=== PATIENT | female | born 1965 | race Caucasian/White ===

== ENCOUNTER → 2016-10-31 | Outpatient (CLI) | payer BC | END | disposition home or self-care (01) | LOC: RADECHMAIN 12:21 | PROVIDERS: ATTEND Family Medicine | DX: R00.2 Palpitations (principal) | CPT/HCPCS: 93225; 93226 ==

== ENCOUNTER → 2016-11-26 | Outpatient (CLI) | payer BC ==
--- NOTE | 2016-11-26 11:10 | FL ---
EXAMINATION TYPE: FL barium swallow DATE OF EXAM: 11/26/2016 COMPARISON: NONE HISTORY: Dysphasia and heartburn TECHNIQUE: Double contrast esophagram FINDINGS: Barium and air was swallowed without difficulty and passed and the esophagus without delay. There are tertiary contractions of the esophagus and a small sliding hiatal hernia with mild gastroe sophageal reflux. No obstructing lesion was seen. IMPRESSION: 1. Small sliding hiatal hernia with tertiary contractions of esophagus and mild gastroesophageal refl ux. Cannot exclude a mild esophagitis correlate with direct visualization as clinically warranted.
== END ==
LOC: RADFLWHC 10:09
PROVIDERS: ATTEND Family Medicine
DX: K21.9 Gastro-esophageal reflux disease without esophagitis (principal); K44.9 Diaphragmatic hernia without obstruction or gangrene; R12 Heartburn; R07.89 Other chest pain
CPT/HCPCS: 74220

== ENCOUNTER 2016-12-31 17:29 | Emergency (ER) | payer BC ==
[2016-12-31 18:37] LABS: Basophils # (A) 0.1 k/uL (0-0.2); Basophils % (A) 1 %; CH 31.5; CHCM 34.7; Eosinophils # (A) 0.4 k/uL (0-0.7); Eosinophils % (A) 5 %; HCT 45.8 % (34.0-46.0); HDW 2.32; HGB 15.6 gm/dL (11.4-16.0); Luc # (Auto) 0.19; Luc % (Auto) 3; Lymphocytes # (A) 1.9 k/uL (1.0-4.8); Lymphocytes % (A) 27 %; MCH 31.1 pg (25.0-35.0); MCHC 34.1 g/dL (31.0-37.0); MCV 91.2 fL (80.0-100.0); Mean Platelet Volume 6.9; Monocytes # (A) 0.5 k/uL (0-1.0); Monocytes % (A) 7 %; Neutrophils # (A) 4.2 k/uL (1.3-7.7); Neutrophils % (A) 58 %; RBC 5.02 m/uL (3.80-5.40); RDW 12.6 % (11.5-15.5); WBC 7.2 k/uL (3.8-10.6); WBC (Perox) 7.01
--- NOTE | 2016-12-31 18:41 | XR ---
EXAMINATION TYPE: XR chest 2V DATE OF EXAM: 12/31/2016 COMPARISON: 12/23/2016 HISTORY: Chest pain TECHNIQUE: Frontal and lateral views of the chest are obtained. FINDINGS: Heart and mediastinum are normal. Lungs are clear. Diaphragm is normal. There are chest le ads. There is mild thoracic dextroscoliosis. IMPRESSION: No active cardiopulmonary disease. No change.
[2016-12-31 18:47] LABS: ALT 37 U/L (9-52); AST 25 U/L (14-36); Alkaline Phosphatase 47 U/L (38-126); Anion Gap 8 mmol/L; Blood Urea Nitrogen 17 mg/dL (7-17); Calcium 10.6 mg/dL (8.4-10.2); Carbon Dioxide 26 mmol/L (22-30); Chloride 106 mmol/L (98-107); Glucose 93 mg/dL (74-99); Magnesium 1.8 mg/dL (1.6-2.3); Non-African American GFR(MDRD) >60 (>60 ml/min/1.73 sqM); Sodium 140 mmol/L (137-145); Total Bilirubin 0.4 mg/dL (0.2-1.3); Total Protein 7.3 g/dL (6.3-8.2)
[2016-12-31 18:56] LABS: Creatine Kinase 34 U/L (30-135)
[2016-12-31 18:58] LABS: Prothrombin Time 10.2 sec (9.0-12.0)
[2016-12-31 19:07] LABS: Partial Thromboplastin Time 20.8 sec (22.0-30.0)
[2016-12-31 19:09] LABS: Creatine Kinase MB 0.3 ng/mL (0.0-2.4); Troponin I <0.012 ng/mL (0.000-0.034)
[2016-12-31] MEDS ORDERED: RX INFO: IV CONTRAST WAS GIVEN 1 EACH MISC MISCELLANE PRN (19:45)
--- NOTE | 2016-12-31 20:36 | CT ---
EXAMINATION TYPE: CT angio chest DATE OF EXAM: 12/31/2016 8:16 PM COMPARISON: NONE HISTORY: CHEST PAINS AND SOB X1 WEEK CT DLP: 257.8 mGycm Automated exposure control for dose reduction was used. CONTRAST: CTA scan of the thorax is performed with IV Contrast, patient injected with 60 mL of Omnipaque 350, p ulmonary embolism protocol. There are 3-D post processed images.. FINDINGS: The lungs are clear of infiltrate. There is no pleural effusion. There is mild linear density at the left posterior lung base consistent with scarring or atelectasis. There is no sign of a pulmonary mas s. There is no pericardial effusion. There is no pleural effusion. I see no filling defects in the pulmonary arteries. There is no evidence of aortic aneurysm or dissec tion. There is spurring in the thoracic spine. IMPRESSION: NO EVIDENCE OF DOMINANT EMBOLISM. MINIMAL SCARRING OR ATELECTASIS IN THE LEFT LOWER LOBE.
--- NOTE | 2016-12-31 21:38 | ED ---
General Adult HPI - General Chief complaint: Chest Pain Stated complaint: chest pain, anxiety Time Seen by Provider: 12/31/16 17:38 Source: patient, RN notes reviewed, old records reviewed Mode of arrival: wheelchair Limitations: no limitations - History of Present Illness Initial comments: 51-year-old female presenting with heavy chest pain and jaw pain. Patient states the pain was with exertion and she did have some shortness of breath. She was recently evaluated for chest pain approximately one week ago which included a stress test and stress echo. Patient was started on atenolol on Saturday as well as medication for gastric reflux. She was also given anxiety medication isn't was some concern that this may have been related to anxiety. She has a past medical history of hypothyroidism. Patient states the pain was somewhat different today. Denies any nausea vomiting or diarrhea. Denies any diaphoresis. She does have a strong family history of coronary artery disease with a father who at age 40. - Related Data Home Medications Medication Instructions Recorded Confirmed Thyroid,Pork [[place] Thyroid] 60 mg PO SUMOWETHFR 12/23/16 12/31/16 Atenolol [Tenormin] 25 mg PO DAILY 12/31/16 12/31/16 Thyroid,Pork [[place] Thyroid] 120 mg PO TUSA 12/31/16 12/31/16 Previous Rx's Medication Instructions Recorded Atorvastatin [Lipitor] 20 mg PO DAILY tab 12/24/16 LORazepam [Ativan] 0.5 mg PO TID PRN #20 tab 12/24/16 Pantoprazole Sodium [Protonix] 40 mg PO DAILY #30 tablet. 12/24/16 Allergies Allergy/AdvReac Type Severity Reaction Status Date / Time No Known Allergies Allergy Verified 12/31/16 19:16 Review of Systems ROS Statement: Those systems with pertinent positive or pertinent negative responses have been documented in the HPI. ROS Other: All systems not noted in ROS Statement are negative. Respiratory: Denies: cough Cardiovascular: Reports: chest pain, palpitations Gastrointestinal: Denies: abdominal pain, nausea, vomiting Past Medical History Past Medical History: No Reported History Additional Past Medical History / Comment(s): Hiatal Hernia History of Any Multi-Drug Resistant Organisms: None Reported Past Surgical History: No Surgical Hx Reported Past Anesthesia/Blood Transfusion Reactions: No Reported Reaction Past Psychological History: Anxiety, Depression Smoking Status: Former smoker Past Alcohol Use History: None Reported Past Drug Use History: None Reported - Past Family History Father Family Medical History: Myocardial Infarction ([place]) General Exam Limitations: no limitations General appearance: alert, in no apparent distress Head exam: Present: atraumatic, normocephalic Eye exam: Present: normal appearance, PERRL, EOMI ENT exam: Present: normal exam, mucous membranes moist Neck exam: Present: normal inspection. Absent: meningismus Respiratory exam: Present: normal lung sounds bilaterally, respiratory distress Cardiovascular Exam: Present: regular rate, normal rhythm GI/Abdominal exam: Present: soft. Absent: distended Extremities exam: Present: normal inspection, normal capillary refill. Absent: pedal edema Back exam: Present: normal inspection Neurological exam: Present: alert, oriented X3 Psychiatric exam: Present: normal affect, normal mood Skin exam: Present: warm, dry. Absent: diaphoretic Course Vital Signs 12/31/16 12/31/16 12/31/16 17:36 19:40 20:40 Temperature 96.8 F L Pulse Rate 84 57 L 61 Respiratory 20 18 16 Rate Blood Pressure 151/105 109/69 117/70 O2 Sat by Pulse 94 L 95 98 Oximetry EKG Findings - EKG Comments: EKG Findings:: EKG shows sinus rhythm with a ventricular rate of 67, AL interval 1:30, castration 88, QTC is 456, there is no ST segment elevation or depression. Medical Decision Making - Medical Decision Making Laboratory workup including CBC, CMP and cardiac enzymes is unremarkable, exception of an elevated d-dimer. CT angiography was obtained to evaluate for pulmonary embolism. This is negative. Medical records are reviewed including stress echo and stress test obtained 7 days ago. These were normal. Discussion with the patient regarding the possibilities of her pain including CAD, esophageal spasm, and anxiety. Patient was offered admission for repeat cardiology evaluation. She declines. She is accompanied by her and they are both willing to go home and repeat present emergency department with change or worsening symptoms. 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 She is encouraged to continue these appointments. - Lab Data Result diagrams: 12/31/16 18:21 12/31/16 18:21 Lab Results 12/31/16 12/31/16 12/31/16 Range/Units 18:21 18:21 18:21 WBC 7.2 (3.8-10.6) k/uL RBC 5.02 (3.80-5.40) m/uL Hgb 15.6 (11.4-16.0) gm/dL Hct 45.8 (34.0-46.0) % MCV 91.2 (80.0-100.0) fL MCH 31.1 (25.0-35.0) pg MCHC 34.1 (31.0-37.0) g/dL RDW 12.6 (11.5-15.5) % Plt Count 321 (150-450) k/uL Neutrophils % 58 % Lymphocytes % 27 % Monocytes % 7 % Eosinophils % 5 % Basophils % 1 % Neutrophils # 4.2 (1.3-7.7) k/uL Lymphocytes # 1.9 (1.0-4.8) k/uL Monocytes # 0.5 (0-1.0) k/uL Eosinophils # 0.4 (0-0.7) k/uL Basophils # 0.1 (0-0.2) k/uL PT (9.0-12.0) sec INR (<1.2) APTT (22.0-30.0) sec D-Dimer (<0.60) mg/L FEU Sodium 140 (137-145) mmol/L Potassium 4.0 (3.5-5.1) mmol/L Chloride 106 (98-107) mmol/L Carbon Dioxide 26 (22-30) mmol/L Anion Gap 8 mmol/L BUN 17 (7-17) mg/dL Creatinine 0.77 (0.52-1.04) mg/dL Est GFR (MDRD) Af Amer >60 (>60 ml/min/1.73 sqM) Est GFR (MDRD) Non-Af >60 (>60 ml/min/1.73 sqM) Glucose 93 (74-99) mg/dL Calcium 10.6 H (8.4-10.2) mg/dL Magnesium 1.8 (1.6-2.3) mg/dL Total Bilirubin 0.4 (0.2-1.3) mg/dL AST 25 (14-36) U/L ALT 37 (9-52) U/L Alkaline Phosphatase 47 (38-126) U/L Total Creatine Kinase 34 (30-135) U/L CK-MB (CK-2) 0.3 (0.0-2.4) ng/mL CK-MB (CK-2) Rel Index 0.9 Troponin I <0.012 (0.000-0.034) ng/mL NT-Pro-B Natriuret Pep pg/mL Total Protein 7.3 (6.3-8.2) g/dL Albumin 4.5 (3.5-5.0) g/dL 12/31/16 12/31/16 Range/Units 18:21 18:21 WBC (3.8-10.6) k/uL RBC (3.80-5.40) m/uL Hgb (11.4-16.0) gm/dL Hct (34.0-46.0) % MCV (80.0-100.0) fL MCH (25.0-35.0) pg MCHC (31.0-37.0) g/dL RDW (11.5-15.5) % Plt Count (150-450) k/uL Neutrophils % % Lymphocytes % % Monocytes % % Eosinophils % % Basophils % % Neutrophils # (1.3-7.7) k/uL Lymphocytes # (1.0-4.8) k/uL Monocytes # (0-1.0) k/uL Eosinophils # (0-0.7) k/uL Basophils # (0-0.2) k/uL PT 10.2 (9.0-12.0) sec INR 1.0 (<1.2) APTT 20.8 L (22.0-30.0) sec D-Dimer 1.46 H (<0.60) mg/L FEU Sodium (137-145) mmol/L Potassium (3.5-5.1) mmol/L Chloride (98-107) mmol/L Carbon Dioxide (22-30) mmol/L Anion Gap mmol/L BUN (7-17) mg/dL Creatinine (0.52-1.04) mg/dL Est GFR (MDRD) Af Amer (>60 ml/min/1.73 sqM) Est GFR (MDRD) Non-Af (>60 ml/min/1.73 sqM) Glucose (74-99) mg/dL Calcium (8.4-10.2) mg/dL Magnesium (1.6-2.3) mg/dL Total Bilirubin (0.2-1.3) mg/dL AST (14-36) U/L ALT (9-52) U/L Alkaline Phosphatase (38-126) U/L Total Creatine Kinase (30-135) U/L CK-MB (CK-2) (0.0-2.4) ng/mL CK-MB (CK-2) Rel Index Troponin I (0.000-0.034) ng/mL NT-Pro-B Natriuret Pep 110 pg/mL Total Protein (6.3-8.2) g/dL Albumin (3.5-5.0) g/dL Disposition Clinical Impression: Chest pain Disposition: HOME SELF-CARE Condition: Good Instructions: Chest Pain (ED) Referrals: Zev Sanders III, MD [Primary Care Provider] - 1-2 days Time of Disposition: 21:37
[2016-12-31 21:55] VITALS: BP 94/55
[2016-12-31 22:16] VITALS: PULSE 56; RESP 16; TEMP 98.5
== END 2016-12-31 22:15 | disposition home or self-care (01) ==
LOC: EC 17:29
DX: R07.9 Chest pain, unspecified (principal); R06.00 Dyspnea, unspecified; R00.2 Palpitations; F41.9 Anxiety disorder, unspecified; E07.9 Disorder of thyroid, unspecified; Z82.49 Family history of ischemic heart disease and other diseases of the circulatory system; Z79.899 Other long term (current) drug therapy; Z87.891 Personal history of nicotine dependence
CPT/HCPCS: 99285; 36415; 93005; 85379; 83880; 80053; 82550; 82553; 83735; 84484; 85025; 85610; 85730; 71020; 71275; Q9967

== ENCOUNTER → 2017-03-01 | Outpatient (CLI) | payer BC ==
[2017-03-01 08:24] LABS: ALT 33 U/L (9-52); AST 23 U/L (14-36); Cholesterol 186 mg/dL (<200); HDL Cholesterol 59 mg/dL (40-60)
== END | disposition home or self-care (01) ==
LOC: LABWHC1 07:20
PROVIDERS: ATTEND Internal Medicine Interventional Cardiology
DX: E78.2 Mixed hyperlipidemia (principal)
CPT/HCPCS: 36415; 80061; 84450; 84460

== ENCOUNTER → 2024-08-03 | Outpatient (CLI) | payer BC ==
--- NOTE | 2024-08-06 15:06 | CT ---
EXAMINATION TYPE: CT iac wo con DATE OF EXAM: 08/03/2024 5:45 PM COMPARISON: None. CLINICAL INDICATION: Female, 59 years old with history of H93.19 TINNITUS, UNSPECIFIED EAR, Hearing i ssues and vertigo for years. TECHNIQUE: Contrast used: mL of , (none if empty) Oral contrast used: (none if empty) Axial images at 1 mm thick sections. Reconstructed images in the coronal and sagittal planes. FINDINGS: Mastoid air cells are clear. Maxillary sinuses and ethmoid air cells are clear. Tiny retention cyst i s within the dependent left sphenoid sinus. Internal auditory canals appear normal without expansion or erosion. No cerebellar pontine angle mass es are identified. Cochlea and semicircular canals are normal. Middle ears are clear. Incus and malle us have normal orientation. External auditory canals are normal. Reconstructive images are reviewed. Marsha bullosa are present. Ostiomeatal units are patent. Temporo mandibular junctions appear normal. Scutum are normal. Attics are clear. IMPRESSION: 1. NO SUSPICIOUS ABNORMALITIES ACCOUNT FOR TINNITUS. [facility], , 08/06/2024 3:03 PM
== END | disposition home or self-care (01) ==
LOC: RADCTMAIN 17:22
PROVIDERS: ATTEND Otolaryngology
DX: H93.19 Tinnitus, unspecified ear (principal); H91.90 Unspecified hearing loss, unspecified ear; R42 Dizziness and giddiness
CPT/HCPCS: 70480